=== PATIENT | female | born 1965 | race Caucasian/White ===

== ENCOUNTER 2018-09-11 12:18 | Day surgery (SDC) | payer BC, OTHER ==
[~2018-09-11] VITALS: Ht 172.7 cm; Wt 74.3 kg
[~2018-09-11 12:18] MED LIST: FLUO20TA25 PO; LACT1CAP35 PO; MAGN250T8 PO; MULT-642 PO; VITA1TAB19 PO
[2018-09-11] MEDS ORDERED: LACTATED RINGERS 1,000 ML IV SCH (12:43)
[2018-09-11 13:09] VITALS: BP 129/77
[2018-09-11] MEDS ORDERED: MIDAZOLAM 1 MG/ML, 2ML ONE (13:24)
[2018-09-11] MEDS ORDERED: CEFAZOLIN 1,000 MG ONE ×2 (13:24)
[2018-09-11] MEDS ORDERED: FENTANYL PF 250 MCG/5ML ONE (13:24)
[2018-09-11] MEDS ORDERED: PROPOFOL 10 MG/ML, 20ML ONE (13:26)
[2018-09-11] MEDS ORDERED: ONDANSETRON 2MG/ML, 2ML ONE (13:26)
[2018-09-11] MEDS ORDERED: DEXAMETHASONE 4 MG/ML, 1ML ONE ×2 (13:26)
[2018-09-11] MEDS ORDERED: BUPIVACAINE/PF 0.5% ONE (14:12)
[2018-09-11] MEDS ORDERED: SCOPOLAMINE PATCH, 1.5MG PATCH.TD72 TD ONE ×2 (14:16→14:56)
[2018-09-11] MEDS ORDERED: PROMETHAZINE 25 MG/ML, 1ML IM PRN ×2 (14:30)
[2018-09-11] MEDS ORDERED: LABETALOL 5MG/ML, 20ML IV PRN (14:30)
[2018-09-11] MEDS ORDERED: FENTANYL PF 100 MCG/2ML IV PRN (14:30)
[2018-09-11] MEDS ORDERED: ONDANSETRON 2MG/ML, 2ML IV PRN (14:30)
[2018-09-11] MEDS ORDERED: ONDANSETRON ODT 8 MG PO PRN (14:30)
[2018-09-11] MEDS ORDERED: OXYcodone 5 MG/5 ML ORAL.SOL UDC PO PRN (14:30)
[2018-09-11] MEDS ORDERED: PROMETHAZINE 25 MG SUPP PR PRN (14:30)
[2018-09-11] MEDS ORDERED: PROMETHAZINE 12.5 MG SUPP PR PRN (14:30)
[2018-09-11] MEDS ORDERED: HYDROmorphone 2 MG/ML, 1ML IVPush PRN (14:30)
[2018-09-11] MEDS ORDERED: PROMETHAZINE 25 MG/ML, 1ML IV PRN (14:30)
[2018-09-11] MEDS ORDERED: hydrALAzine 20 MG/ML, 1ML IV PRN (14:30)
[2018-09-11] MEDS ORDERED: MEPERIDINE/PF 25MG/0.5ML IVPush PRN (14:30)
[2018-09-11] MEDS ORDERED: HALOPERIDOL 5 MG/ML IV PRN (14:30)
[2018-09-11] MEDS ORDERED: ACETAMINOPHEN 325 MG TABLET PO PRN (14:30)
[2018-09-11] MEDS ORDERED: MORPHINE SULFATE 4 MG/ML, 1ML IVPush PRN (14:30)
[2018-09-11] MEDS ORDERED: BUPIVACAINE/PF-EPI 0.5% 1:200K ONE (15:06)
[2018-09-11] MEDS ORDERED: OXYcodone 5 MG/5 ML ORAL.SOL UDC ONE (15:28)
[2018-09-11] MEDS ORDERED: FENTANYL PF 100 MCG/2ML ONE (15:28)
== END 2018-09-11 16:55 | disposition home or self-care (01) ==
LOC: OR 12:18
PROVIDERS: ATTEND Orthopaedic Surgery
DX: M19.041 Primary osteoarthritis, right hand (principal); Z72.89 Other problems related to lifestyle
CPT/HCPCS: 26860; 73140; 76000; C1713; J0690; J1100; J2250; J2405; J2704; J3010; J3490; J7120

== ENCOUNTER 2018-10-22 14:32 | Day surgery (SDC) | payer OTHER ==
[2018-10-16 08:58] VITALS: BP 130/82
[~2018-10-22] VITALS: Ht 172.7 cm; Wt 73.7 kg
[2018-10-22] MEDS ORDERED: LACTATED RINGERS 1,000 ML IV SCH (15:03)
[2018-10-22] MEDS ORDERED: FENTANYL PF 100 MCG/2ML ONE (15:29)
[2018-10-22] MEDS ORDERED: MIDAZOLAM 1 MG/ML, 2ML ONE (15:29)
[2018-10-22] MEDS ORDERED: HYDROmorphone 2 MG/ML, 1ML IVPush PRN (15:30)
[2018-10-22] MEDS ORDERED: OXYcodone 5 MG/5 ML ORAL.SOL UDC PO PRN (15:30)
[2018-10-22] MEDS ORDERED: MEPERIDINE/PF 25MG/0.5ML IVPush PRN (15:30)
[2018-10-22] MEDS ORDERED: ONDANSETRON 2MG/ML, 2ML IV PRN (15:30)
[2018-10-22] MEDS ORDERED: PROMETHAZINE 25 MG/ML, 1ML IV PRN (15:30)
[2018-10-22] MEDS ORDERED: FENTANYL PF 100 MCG/2ML IV PRN (15:30)
[2018-10-22] MEDS ORDERED: ACETAMINOPHEN 325 MG TABLET PO PRN (15:30)
[2018-10-22] MEDS ORDERED: LABETALOL 5MG/ML, 20ML IV PRN (15:30)
[2018-10-22] MEDS ORDERED: hydrALAzine 20 MG/ML, 1ML IV PRN (15:30)
[2018-10-22] MEDS ORDERED: CEFAZOLIN 1,000 MG ONE (16:52)
[2018-10-22] MEDS ORDERED: LIDOCAINE 1%-EPI 1:100K, 20ML ONE (17:02)
== END 2018-10-22 18:25 | disposition home or self-care (01) ==
LOC: OR 14:32
PROVIDERS: ATTEND Orthopaedic Surgery
DX: M25.842 Other specified joint disorders, left hand (principal); M19.042 Primary osteoarthritis, left hand; Z72.89 Other problems related to lifestyle
CPT/HCPCS: 26160; J0690; J2250; J3010; J3490; J7120

== ENCOUNTER → 2018-11-13 | Outpatient (CLI) | payer OTHER | END | disposition home or self-care (01) | LOC: CFH 09:15 | PROVIDERS: ATTEND Nurse Practitioner Family | DX: Z12.31 Encounter for screening mammogram for malignant neoplasm of breast (principal) | CPT/HCPCS: 77067 ==

== ENCOUNTER → 2020-01-17 | Outpatient (CLI) | payer OTHER ==
[2020-01-17 07:48] LABS: BASOPHILS # (AUTO) 0.03 x10^3/uL (0-0.1); BASOPHILS % (AUTO) 1 % (0-1); EOSINOPHILS # (AUTO) 0.14 x10^3/uL (0-0.4); EOSINOPHILS % (AUTO) 4 % (1-7); LYMPHOCYTES # (AUTO) 1.38 x10^3/uL (1-3.4); LYMPHOCYTES % (AUTO) 36 % (22-44); MD NO; MEAN CORPUSCULAR HEMOGLOBIN 30.3 pg (27.0-34.8); MEAN CORPUSCULAR HGB CONC 32.5 g/dL (32.4-35.8); MEAN CORPUSCULAR VOLUME 93.2 fL (80-100); MEAN PLATELET VOLUME 7.5 fL (7.4-10.4); MONOCYTES # (AUTO) 0.33 x10^3/uL (0.2-0.8); MONOCYTES % (AUTO) 9 % (2-9); NEUTROPHILS # (AUTO) 1.96 x10^3/uL (1.8-6.8); NEUTROPHILS % (AUTO) 51 % (42-75); PLATELET COUNT 380 x10^3/uL (130-400); RED BLOOD COUNT 4.28 x10^6/uL (3.82-5.3); RED CELL DISTRIBUTION WIDTH 15.9 % (9.6-15.2)
[2020-01-17 07:54] LABS: ALBUMIN 3.8 g/dL (3.4-5.0)
[2020-01-17 08:09] LABS: ANION GAP 5 mmol/L (5-15); CHLORIDE 108 mmol/L (98-107)
[2020-01-17 08:19] LABS: ALANINE AMINOTRANSFERASE 34 U/L (12-78); ALKALINE PHOSPHATASE 83 U/L (45-117); BILIRUBIN,TOTAL 0.6 mg/dL (0.2-1.0); CHOL/HDL RATIO 3.9; CHOLESTEROL, TOTAL 247 mg/dL (140-239); HDL CHOL % 26 % (28-40); HDL CHOLESTEROL (DIRECT) 63 mg/dL (40-60); LDL CHOLESTEROL,CALCULATED 166 mg/dL (54-169); LDL/HDL RATIO 2.6 (0.5-3.0); T4 (THYROXINE) 6.8 mcg/dL (4.8-13.9); TOTAL PROTEIN 7.2 g/dL (6.4-8.2); TRIGLYCERIDES 92 mg/dL (50-200); VLDL CHOLESTEROL 18 mg/dL (0-25)
== END | disposition home or self-care (01) ==
LOC: LAB 07:28
PROVIDERS: ATTEND Family Medicine
DX: Z00.01 Encounter for general adult medical examination with abnormal findings (principal); E78.5 Hyperlipidemia, unspecified; N95.1 Menopausal and female climacteric states; R63.5 Abnormal weight gain
CPT/HCPCS: 36415; 80053; 80061; 82306; 82607; 84436; 84443; 84480; 84481; 85025